=== PATIENT | female | born 1975 | race African-American/Black ===

== ENCOUNTER 2021-05-14 02:44 | Emergency (ER) | payer BC, OTHER ==
[~2021-05-14] VITALS: Ht 162.6 cm; Wt 84.1 kg
[2021-05-14 03:41] LABS: BASO # 0.1 x10^3/uL (0.0-0.2); BASO % 1 % (0-3); EOS # 0.1 x10^3/uL (0.0-0.7); EOS % 1 % (0-3); HEMATOCRIT 33.9 % (36.0-47.0); HEMOGLOBIN 11.4 g/dL (12.0-15.5); LYMPH # 1.9 x10^3/uL (1.0-4.8); LYMPH % 30 % (24-48); MEAN CORPUSCULAR HEMOGLOBIN 29 pg (25-35); MEAN CORPUSCULAR HGB CONC 34 g/dL (31-37); MEAN CORPUSCULAR VOLUME 86 fL (79-100); MONO # 0.4 x10^3/uL (0.0-1.1); MONO % 7 % (0-9); NEUT # 3.7 x10^3/uL (1.8-7.7); NEUT % 60 % (31-73); PLATELET COUNT 410 x10^3/uL (140-400); RED BLOOD COUNT 3.97 x10^6/uL (3.50-5.40); RED CELL DISTRIBUTION WIDTH 21.3 % (11.5-14.5); WHITE BLOOD COUNT 6.1 x10^3/uL (4.0-11.0)
[2021-05-14 03:52] LABS: CALCIUM 8.8 mg/dL (8.5-10.1); CREATININE 0.9 mg/dL (0.6-1.0); GFR 81.9; POTASSIUM 3.9 mmol/L (3.5-5.1)
--- NOTE | 2021-05-14 03:55 | RAD ---
XR CHEST 1V INDICATION: Reason: left sided paresthesias / Spl. Instructions: / History: . COMPARISON STUDY: None. FINDINGS: Lungs: Normal lung volume. No pulmonary mass or consolidation. The tracheobronchial tree and hilar st ructures are normal. Pleura: No pleural effusion or pneumothorax. Heart and Mediastinum: The cardiomediastinal silhouette is normal. The great vessels of the thorax ar e normal. Bones and Soft Tissues: The bones and soft tissues are within normal limits. IMPRESSION: No acute cardiopulmonary process. Electronically signed by: Srinivasan Lyon MD (05/14/2021 3:53 AM) [facility]
[2021-05-14 03:58] LABS: ALBUMIN 3.5 g/dL (3.4-5.0); MAGNESIUM 1.5 mg/dL (1.8-2.4); PHOSPHORUS 2.6 mg/dL (2.6-4.7); TOTAL BILIRUBIN 0.3 mg/dL (0.2-1.0); TOTAL PROTEIN 6.9 g/dL (6.4-8.2)
--- NOTE | 2021-05-14 04:09 | RAD ---
CT HEAD/BRAIN WO Date: 05/14/2021 3:32 AM Clinical Indication: Reason: left sided paresthesias / Spl. Instructions: / History: Comparison: None. Technique: 5 mm axial tomographic images were obtained of the head without contrast. These were view ed on brain and bone windows. One or more of the following dose reduction techniques were utilized: A utomated exposure control (AEC), Adjustment of mA and/or kV according to patient size, Use of iterati ve reconstruction technique such as ASiR, CT scan done according to ALARA and image gently/image bunch ly Findings: The brain parenchyma is normal in attenuation. No intra- or extra-axial mass or fluid collection. No acute hemorrhage. The ventricles are normal in size, shape, and morphology. The alcaraz-white matter ariel ction is normal. The subarachnoid cisterns are patent. The visualized paranasal sinuses are normal. The visualized portions of the orbits and globes are no rmal. The mastoid air cells are clear. The senior administrative associate topogram shows no lytic lesion or fracture. Impression: No acute intracranial process. Electronically signed by: Srinivasan Lyon MD (05/14/2021 4:07 AM) [facility]
[2021-05-14] MEDS ORDERED: MAGNESIUM SULFATE 1GM 100 ML IV ONE (04:30)
--- NOTE | 2021-05-14 04:34 | EKG ---
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
--- NOTE | 2021-05-14 04:48 | ED.ADGEN ---
Past Medical History Past Medical History: DVT, Other Additional Past Medical Histor: PE Past Surgical History: Tubal ligation Smoking Status: Former Smoker Alcohol Use: Heavy General Adult EDM: Chief Complaint: NEURO SYMPTOMS/DEFICITS HPI: HPI: Patient is a 46-year-old female past medical history of alcoholism who presents to the emergency room complaining of a tingling sensation in her left arm and face that started yesterday. She states that she is able to fully feel in her face and arm but that she has these tingly feelings. She denies any numbness or weakness. She has never had anything like this previously. She states that she has not been eating as much as normal lately and feels that this may be part of the reason that she is having these feelings. She denies any chest pain or pain anywhere in her body. She denies any nausea or vomiting. Review of Systems: Review of Systems: Complete ROS is negative unless otherwise documented in HPI Current Medications: Current Medications Medications (Trade) Dose Ordered Sig/Angy Start Time Stop Time Status Last Admin Dose Admin Magnesium Sulfate/ Dextrose 100 ml @ 100 mls/hr 1X ONCE 05/14/21 04:30 05/14/21 05:29 DC 05/14/21 04:30 100 MLS/HR Allergies: Allergies: Allergies Coded Allergies Type Severity Reaction Last Updated Verified No Known Drug Allergies 05/14/21 No Physical Exam: PE: General: Awake, alert, NAD. Well Nourished, well hydrated. Cooperative HEENT: Atraumatic, EOMI, PERRL, airway patent, moist oral mucosa Neck: Supple, trachea midline Respiratory: CTA bilaterally, normal effort, no wheezing/crackles CV: RRR, no murmur, cap refill <2 GI: Soft, nondistended, nontender, no masses MSK: No obvious deformities Skin: Warm, dry, intact Neuro: A&O x3, speech NL, 5/5 strength in BUE/BLE distally and proximally, CN 2- 12 intact, cerebellar testing normal Psych: Normal affect, normal mood, not suicidal or homicidal Current Patient Data: Labs: Laboratory Tests Test 05/14/21 03:04 05/14/21 03:30 Glucose (Fingerstick) 105 mg/dL (70-99) H White Blood Count 6.1 x10^3/uL (4.0-11.0) Red Blood Count 3.97 x10^6/uL (3.50-5.40) Hemoglobin 11.4 g/dL (12.0-15.5) L Hematocrit 33.9 % (36.0-47.0) L Mean Corpuscular Volume 86 fL (79-100) Mean Corpuscular Hemoglobin 29 pg (25-35) Mean Corpuscular Hemoglobin Concent 34 g/dL (31-37) Red Cell Distribution Width 21.3 % (11.5-14.5) H Platelet Count 410 x10^3/uL (140-400) H Neutrophils (%) (Auto) 60 % (31-73) Lymphocytes (%) (Auto) 30 % (24-48) Monocytes (%) (Auto) 7 % (0-9) Eosinophils (%) (Auto) 1 % (0-3) Basophils (%) (Auto) 1 % (0-3) Neutrophils # (Auto) 3.7 x10^3/uL (1.8-7.7) Lymphocytes # (Auto) 1.9 x10^3/uL (1.0-4.8) Monocytes # (Auto) 0.4 x10^3/uL (0.0-1.1) Eosinophils # (Auto) 0.1 x10^3/uL (0.0-0.7) Basophils # (Auto) 0.1 x10^3/uL (0.0-0.2) Platelet Estimate Increased (ADEQUATE) Polychromasia Slight Anisocytosis Mod Target Cells Few Sodium Level 138 mmol/L (136-145) Potassium Level 3.9 mmol/L (3.5-5.1) Chloride Level 103 mmol/L (98-107) Carbon Dioxide Level 26 mmol/L (21-32) Anion Gap 9 (6-14) Blood Urea Nitrogen 9 mg/dL (7-20) Creatinine 0.9 mg/dL (0.6-1.0) Estimated GFR (Cockcroft-Gault) 81.9 BUN/Creatinine Ratio 10 (6-20) Glucose Level 97 mg/dL (70-99) Calcium Level 8.8 mg/dL (8.5-10.1) Phosphorus Level 2.6 mg/dL (2.6-4.7) Magnesium Level 1.5 mg/dL (1.8-2.4) L Total Bilirubin 0.3 mg/dL (0.2-1.0) Aspartate Amino Transferase (AST) 27 U/L (15-37) Alanine Aminotransferase (ALT) 41 U/L (14-59) Alkaline Phosphatase 68 U/L (46-116) Troponin I Quantitative < 0.017 ng/mL (0.000-0.055) Total Protein 6.9 g/dL (6.4-8.2) Albumin 3.5 g/dL (3.4-5.0) Albumin/Globulin Ratio 1.0 (1.0-1.7) Vitamin B12 Level 360 pg/mL (247-911) Laboratory Tests 05/14/21 03:30 Laboratory Tests 05/14/21 03:30 Vital Signs: Vital Signs Date Time Temp Pulse Resp B/P (MAP) Pulse Ox O2 Delivery O2 Flow Rate FiO2 05/14/21 05:49 84 20 109/58 (75) 98 Room Air 05/14/21 02:45 98.4 98.4 EKG: EKG: [] Heart Score: C/O Chest Pain: N/A Risk Factors: Risk Factors: DM, Current or recent (<one month) smoker, HTN, HLP, family history of CAD, obesity. Risk Scores: Score 0 - 3: 2.5% MACE over next 6 weeks - Discharge Home Score 4 - 6: 20.3% MACE over next 6 weeks - Admit for Clinical Observation Score 7 - 10: 72.7% MACE over next 6 weeks - Early Invasive Strategies Radiology/Procedures: Radiology/Procedures: [] Course & Med Decision Making: Course & Med Decision Making Pertinent Labs and Imaging studies reviewed. (See chart for details) Patient is a 46-year-old female who presents to the emergency room complaining of a paresthesia-like feeling to her arm and face. On exam patient states that the feeling is the same when touched with light or sharp touch. Patient does not appear to have a true neurologic deficit. CT of the head was done and does not show a subacute stroke. Given patient's history of alcoholism I believe that it is more likely that this could be related to a B12 or magnesium deficiency. Magnesium is low. Will be replaced in the emergency room. Patient otherwise feels normal. We discussed alcohol sensation. Patient's test results and vitals while in the ED were fully reviewed and discussed with the patient. Patient is stable and at this time does not need admission to the hospital. We have discussed strict return precautions and the importance of following up with their Primary Care Physician. Patient stated understanding and was given an opportunity to ask any questions. Patient is in agreement with plan. Dragon Disclaimer: Dragon Disclaimer: This electronic medical record was generated, in whole or in part, using a voice recognition dictation system. Departure Departure Impression: Primary Impression: Paresthesia Additional Impression: Hypomagnesemia Disposition: HOME / SELF CARE / HOMELESS Condition: STABLE Referrals: UNKNOWN PCP NAME (PCP) Patient Instructions: Hypomagnesemia, Paresthesia Problem Qualifiers MAIDA ESPINOSA MD May 14, 2021 04:48
[2021-05-14 05:07] LABS: PLT ESTIMATE INCREASED (ADEQUATE)
[2021-05-14 05:08] LABS: ANISOCYTOSIS MOD; POLYCHROMASIA SLIGHT; TARGET CELLS FEW
[2021-05-14 05:49] VITALS: BP 109/58
== END 2021-05-14 06:15 | disposition home or self-care (01) ==
LOC: ER 02:44
DX: R20.2 Paresthesia of skin (principal); E83.42 Hypomagnesemia; F10.20 Alcohol dependence, uncomplicated; Z86.718 Personal history of other venous thrombosis and embolism; Y90.9 Presence of alcohol in blood, level not specified
CPT/HCPCS: 36415; 70450; 71045; 80053; 82607; 82962; 83735; 84100; 84484; 85025; 93005; 96365; 99285; J3475

== ENCOUNTER 2021-08-30 00:55 | Emergency (ER) | payer BC ==
[~2021-08-30] VITALS: Ht 162.6 cm; Wt 85.0 kg
[2021-08-30] MEDS ORDERED: ACETAMINOPHEN 500 MG TABLET PO ONE (01:30)
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
[2021-08-30 02:12] VITALS: BP 128/81
--- NOTE | 2021-08-30 02:18 | RAD ---
EXAMINATION: XR SHOULDER_RIGHT 2+ VIEWS CLINICAL HISTORY: Shoulder pain TECHNIQUE: XR SHOULDER_RIGHT 2+ VIEWS COMPARISON: None FINDINGS/ IMPRESSION: Glenohumeral joint maintained. Mild hypertrophic acromioclavicular degenerative changes. No acute fra cture. Electronically signed by: Gustavo To DO (08/30/2021 2:16 AM) [email or web address]
== END 2021-08-31 02:13 | disposition home or self-care (01) ==
LOC: ER 00:55
DX: S40.011A Contusion of right shoulder, initial encounter (principal); Z87.891 Personal history of nicotine dependence; Z86.718 Personal history of other venous thrombosis and embolism; F10.20 Alcohol dependence, uncomplicated; Y90.9 Presence of alcohol in blood, level not specified; Y04.0XXA Assault by unarmed brawl or fight, initial encounter; Y93.89 Activity, other specified; Y92.89 Other specified places as the place of occurrence of the external cause; Y99.8 Other external cause status
CPT/HCPCS: 73030; 99283